=== PATIENT | male | born 1960 | race Hispanic/Latino ===

== ENCOUNTER 2017-07-20 01:26 | Inpatient (IN) | payer OTHER ==
--- NOTE | 2017-07-20 01:31 | C.PDOC ---
History Of Present Illness 57 y/o male presents to the ED for detox of the Heroin and cocaine. The patient states that he last used a few of hours ago. The patient denies headaches, dizziness, nausea, vomiting, and diarrhea. Time Seen by Provider: 07/20/17 01:31 History Per: Patient History/Exam Limitations: no limitations Onset/Duration Of Symptoms: Hrs Current Symptoms Are (Timing): Still Present Suicide/Self Injury Attempted (Context): None Modifying Factor(s): Cocaine, Other (heroin) Severity: None Associated Symptoms: Depression Involuntary Hold By: None Recent travel outside of the [place]: No Additional History Per: Patient Past Medical History Reviewed: Historical Data, Nursing Documentation, Vital Signs Vital Signs: Last Vital Signs Temp 98 F 07/20/17 01:38 Pulse 80 07/20/17 01:38 Resp 16 07/20/17 01:38 BP 160/75 H 07/20/17 01:38 Pulse Ox 98 07/20/17 01:38 Surgical History: No Surg Hx Family History: States: No Known Family Hx Review Of Systems Except As Marked, All Systems Reviewed And Found Negative. Constitutional: Negative for: Fever, Chills Eyes: Negative for: Vision Change ENT: Negative for: Throat Pain Cardiovascular: Negative for: Chest Pain Respiratory: Negative for: Shortness of Breath Gastrointestinal: Negative for: Nausea, Vomiting, Abdominal Pain, Diarrhea Musculoskeletal: Negative for: Back Pain Neurological: Positive for: Other (substance abuse (Cocaine and Heroin)). Negative for: Change in Speech, Dizziness Psych: Negative for: Anxiety Physical Exam - Physical Exam Appears: Non-toxic, No Acute Distress Skin: Warm, Dry Head: Normacephalic Eye(s): bilateral: Normal Inspection Oral Mucosa: Moist Neck: Supple Chest: Symmetrical Cardiovascular: Rhythm Regular Respiratory: No Decreased Breath Sounds, No Rales, No Rhonchi, No Wheezing Gastrointestinal/Abdominal: Soft, No Tenderness, No Guarding Back: Normal Inspection Extremity: Capillary Refill (2<sec.) Extremity: Bilateral: Normal ROM Pulses: Left Dorsalis Pedis: Normal, Right Dorsalis Pedis: Normal Neurological/Psych: Oriented x3, Normal Speech, Normal Cognition, Other Gait: Steady ED Course And Treatment - Laboratory Results Result Diagrams: 07/20/17 02:22 07/20/17 02:22 O2 Sat by Pulse Oximetry: 98 Pulse Ox Interpretation: Normal Progress Note: Blood work, and UA was performed. Disposition Discussed With : Gareth Agustin Comment: accepted the pt on his service and took over the care at 3:44 AM Doctor Will See Patient In The: Hospital Counseled Patient/Family Regarding: Studies Performed, Diagnosis - Disposition Disposition: HOSPITALIZED Disposition Time: :31 Condition: FAIR - POA Present On Arrival: Poor Glycemic Control - Clinical Impression Clinical Impression: Drug abuse, Drug dependence - PA / CEMENT MIXER / Resident Statement MD/DO has examined the patient and agrees with the treatment plan. - Scribe Statement The provider has reviewed the documentation as recorded by the Scribe Cathryn Anderson All medical record entries made by the Scribe were at my direction and personally dictated by me. I have reviewed the chart and agree that the record accurately reflects my personal performance of the history, physical exam, medical decision making, and the department course for this patient. I have also personally directed, reviewed, and agree with the discharge instructions and disposition. Decision To Admit - Pt Status Changed To: Hospital Disposition Of: Inpatient - Admit Certification Admit to Inpatient:: After my assessment, the patient will require hospitalization for at least two midnights. This is because of the severity of symptoms shown, intensity of services needed, and/or the medical risk in this patient being treated as an outpatient. - InPatient: Physician Admission Certification: I certify that this patient requires 2 or more midnights of care for the following reason:: After my assessment, the patient will require hospitalization for at least two midnights. This is because of the severity of symptoms shown, intensity of services needed, and/or the medical risk in this patient being treated as an outpatient. - . Bed Request Type: Detox Admitting Physician: Gareth Agustin Patient Diagnosis: Drug abuse, Drug dependence
[2017-07-20 01:34] VITALS: BMI 25.0
[2017-07-20 02:29] LABS: BASO # 0.1 K/uL (0.0-0.2); BASO % 0.8 % (0.0-2.0); EOS # 0.2 K/uL (0.0-0.7); EOS % 2.5 % (0.0-4.0); HEMATOCRIT 40.6 % (35.0-51.0); LYMPH # 2.3 K/uL (1.0-4.3); LYMPH % 23.8 % (20.0-40.0); MEAN CELL VOLUME 79.6 fL (80.0-94.0); MEAN CORPUSCULAR HGB CONC 32.6 g/dL (33.0-37.0); MONO # 0.6 K/uL (0.0-0.8); MONO % 6.4 % (0.0-10.0); NRBC % 0.1 % (0.0-2.0); RED CELL DISTRIBUTION WIDTH 14.1 % (11.5-14.5); WHITE BLOOD COUNT 9.8 K/uL (4.8-10.8)
[2017-07-20 02:37] LABS: RBC URINE 2 /hpf (0-3); URINE BILIRUBIN NEGATIVE (NEGATIVE); URINE BLOOD NEGATIVE (NEGATIVE); URINE COLOR Yellow (YELLOW); URINE GLUCOSE (UA) NORMAL (Normal); URINE KETONE TRACE mg/dL (NEGATIVE); URINE LEUKOCYTE ESTERASE 1+ Leu/uL (Negative); URINE PROTEIN NEGATIVE (NEGATIVE); WBC URINE 9 /hpf (0-5)
[2017-07-20 02:39] LABS: ALB/GLOB RATIO 1.3 (1.0-2.1); ALCOHOL SERUM < 10 mg/dl (0-10); ALKALINE PHOSPHATASE 93 U/L (38-126); ALT/SGPT 50 U/L (21-72); AST/SGOT 32 U/L (17-59); BILIRUBIN,TOTAL 0.6 mg/dL (0.2-1.3); BLOOD UREA NITROGEN 14 mg/dL (9-20); CALCIUM 9.2 mg/dl (8.6-10.4); CARBON DIOXIDE 29 mmol/L (22-30); CHLORIDE 97 mmol/L (98-107); GFR AFRICAN-AMERICAN > 60; GLUCOSE,RANDOM 114 mg/dL (75-110); POTASSIUM 4.2 mmol/L (3.6-5.2); SODIUM 137 mmol/L (132-148); TOTAL PROTEIN 8.2 g/dL (6.3-8.3)
--- NOTE | 2017-07-20 06:36 | PCM.BM ---
<Vaishali Rhodes - Last Filed: 07/20/17 06:35> Treatment Plan Problems - Problems identified on initial assessmt Opiates Abuse Date Initiated: 07/20/17 Time Initiated: 05:15 Assessment reference: NA Status: Active Treatment assets and liabiliti Patient Assests: adapts well, ADL independent, negotiates basic needs Patient Liabilities: substance abuse (Opiates, cocaine) - Milieu Protocol Maintain good personal hygiene: daily Encourage regular showers, daily Remind patient to perform daily oral care Conduct patient checks and document Observation sheet: Q15 minutes Maintain personal safety: every shift Educate patient to report safety concerns to staff, every shift Monitor environment for contraband/sharps Medication safety: Monitor for expected outcome, potential side effects: every shift, Assess barriers to learning: every shift, Assess readiness for medication education: every shift <Gareth Agustin - Last Filed: 07/23/17 13:02> - Diagnosis (1) Opioid use disorder, severe, dependence Status: Acute Interventions: 07/23/17 13:02 * Assess 7x/week regarding severity of withdrawal * Educate regarding risks, benefits, side effects and alternatives of medications * Use Motivational Interviewing for abstinence * Use CBT for relapse prevention * Medication management for withdrawal symptoms * Encourage medication assisted treatment *
[2017-07-20] MEDS ORDERED: Aluminum Hydroxide/Magnesium Hydroxide Susp (30 mL) PO PRN (10:07)
--- NOTE | 2017-07-20 10:29 | PCM.PSYCH ---
Initial Psychiatric Evaluation - Initial Psychiatric Evaluation Type of Admission: Voluntary Legal Status: Capacity Chief Complaint (in patient's own words): I need help.' History of Present Illness and Precipitating Events: Patient is a 57 year old CM, who is currently homeless, presented to the ED to get help in Detox. Patient stated in the ED that he has abused Cocaine and initially used Cocaine intranasally in the 80's. Patient started using Heroin when he was 44 years of age and started intranasal progressing on to intravenous use 2 years later. At the age of 54, the patient began combining the two drugs and injecting himself with 3 or 4 bags of Heroin and 1/10th a gram of Cocaine. Patient would buy anywhere from 50 dollars to 200 dollars of Heroin and Cocaine daily. 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 Patient denies any legal issues and states that at the present time he is homeless and occasionally stays at his sister's home on [address] in [place]. Patient denies any past history of inpatient psychiatric hospitalizations or any history of follow-up with any psychiatrist. However, he reports h/o multiple detox admissions in the past, last one was at [facility], few months ago. Patient reports of withdrawal symptoms including sweating, headaches, anxiety, and cramps. However, denies any feelings of hopelessness and helplessness. He denies any suicidal ideation or homicidal ideation or any auditory or visual hallucinations. PMH HTN Current Medications: Active Medications Generic Name Dose Route Start Last Admin Trade Name Freq PRN Reason Stop Dose Admin Al Hydrox/Mg Hydrox/Simethicone 30 ml 07/20/17 10:07 Maalox 30 Ml PO TID PRN Indigestion / Heartburn Clonidine HCl 0.1 mg 07/20/17 05:49 Catapres PO Q4H PRN Withdrawal symptoms Hydroxyzine HCl 50 mg 07/20/17 10:07 Atarax PO Q6H PRN Anxiety Ibuprofen 600 mg 07/20/17 10:07 Motrin Tab PO Q6H PRN Pain, moderate (4-7) Loperamide HCl 2 mg 07/20/17 10:07 Imodium PO Q8 PRN Diarrhea Ondansetron HCl 4 mg 07/20/17 10:07 Zofran Tab PO Q8 PRN Nausea/Vomiting Trazodone HCl 100 mg 07/20/17 10:07 Desyrel PO HS PRN Insomnia Past Psychiatric History - Past Psychiatric History Previous Treatment History: Inpatient Pertinent Medical Hx (Current Medical&Sleep Prob, Allergies): Allergies Allergy/AdvReac Type Severity Reaction Status Date / Time FISH Allergy Verified 07/20/17 01:33 No Known Home Med 07/20/17 Review of Systems - Review of Systems All systems: reviewed and no additional remarkable complaints except - Psychiatric Psychiatric: Anxiety, Irritability Mental Status Examination - Personal Presentation Personal Presentation: Looks stated age - Affect Affect: Constricted - Motor Activity Motor Activity: Calm - Reliability in Providing Information Reliability in Providing Information: Good - Speech Speech: Organized - Mood Mood: Anxious - Formal Thought Process Formal Thought Process: No Impairment - Obsessions/Compulsions Obsessions: No Compulsions: No - Cognitive Functions Orientation: Person, Place, Situation, Time Sensorium: Alert Attention/Concentration: Attentive Abstract Thinking: [place] Estimate of Intelligence: Below average Judgement: Imparied, as evidence by: Poor judgement, Intact, as evidence by: Insight regarding need for hospitalization - Risk Risk: Withdrawal, Diminished functioning - Limitations Limitations: Living alone DSM 5 DX - DSM 5 DSM 5 Diagnosis: Opioid use disorder severe Opioid withdrawal Cocaine use disorder severe - Recommended/Plan of Treatment Treatment Recommendations and Plan of Treatment: Opioid use disorder severe CBT Psychoeducation Supportive therapy, individual therapy Use NE for abstinence Opioid withdrawal CBT Psychoeducation Supportive therapy, individual therapy Clonidine when necessary Start subutax when scoring Cocaine use disorder severe CBT Psychoeducation Supportive therapy, individual therapy Use NE for abstinence HTN Monitor s/s Continue prescribed meds - Smoking Cessation Smoking Cessation Initiated: No
[2017-07-20] MEDS ORDERED: Buprenorphine Hydrochloride 2 mg SL ONE ×2 (19:23→20:45)
[2017-07-20] MEDS ORDERED: Buprenorphine Hydrochloride 8 mg SL SCH (20:40)
--- NOTE | 2017-07-20 23:05 | CP.PCM.CON ---
<Apple Perez AceMicaela - Last Filed: 07/21/17 02:07> History of Present Illness - History of Present Illness History of Present Illness: Medicine Consult: 57 year old male with past medical history of polysubstance abuse is being consulted for high blood pressure. Patient is currently in the hospital for detox of cocaine and heroin use. Patient states he is doing well. He denies chest pain, palpitations, shortness of breath, difficult breathing, dizziness, light headedness, nausea or vomiting. PMD: None Past Medical History: None Past surgical history: none Medications: None Allergies: NKDA Family History: None Social: uses IV heroin and IV cocaine; denies alcohol; smokes a pack of cigarettes per day for the past 35 years. Lives with sister. Works for a [employer]. Review of Systems - Constitutional Constitutional: absent: Chills, Fever - Cardiovascular Cardiovascular: absent: Chest Pain, Dyspnea, Palpitations - Gastrointestinal Gastrointestinal: absent: Constipation, Diarrhea, Nausea, Vomiting - Genitourinary Genitourinary: absent: Dysuria - Neurological Neurological: absent: Dizziness, Numbness, Headaches Past Patient History - Infectious Disease Hx of Infectious Diseases: None - Past Social History Smoking Status: Heavy Smoker > 10 Cigarettes Daily - CARDIAC Hx Cardiac Disorders: No Hx Hypertension: No - PULMONARY Hx Tuberculosis: No - NEUROLOGICAL HX Cerebrovascular Accident: No Hx Seizures: No - HEMATOLOGICAL/ONCOLOGICAL Hx Cancer: No Hx Human Immunodeficiency Virus (HIV): No - MUSCULOSKELETAL/RHEUMATOLOGICAL Hx Falls: No - GENITOURINARY/GYNECOLOGICAL Hx Sexually Transmitted Disorders: No - PSYCHIATRIC Hx Substance Use: Yes - SURGICAL HISTORY Hx Surgeries: Yes Other/Comment: inguinal hernia repair - ANESTHESIA Hx Anesthesia: Yes Hx Anesthesia Reactions: No Hx Malignant Hyperthermia: No Meds Allergies/Adverse Reactions: Allergies Allergy/AdvReac Type Severity Reaction Status Date / Time FISH Allergy Verified 07/20/17 01:33 - Medications Medications: Current Medications Al Hydrox/Mg Hydrox/Simethicone (Maalox 30 Ml) 30 ml PO TID PRN PRN Reason: Indigestion / Heartburn Clonidine HCl (Catapres) 0.1 mg PO Q4H PRN PRN Reason: Withdrawal symptoms Last Admin: 07/20/17 22:00 Dose: 0.1 mg Hydroxyzine HCl (Atarax) 50 mg PO Q6H PRN PRN Reason: Anxiety Ibuprofen (Motrin Tab) 600 mg PO Q6H PRN PRN Reason: Pain, moderate (4-7) Loperamide HCl (Imodium) 2 mg PO Q8 PRN PRN Reason: Diarrhea Ondansetron HCl (Zofran Tab) 4 mg PO Q8 PRN PRN Reason: Nausea/Vomiting Trazodone HCl (Desyrel) 100 mg PO HS PRN PRN Reason: Insomnia Physical Exam - Constitutional Appears: Well, No Acute Distress (patient laying comfortably in bed ) Results - Vital Signs Recent Vital Signs: Last Vital Signs Temp 97.4 F L 07/20/17 18:03 Pulse 60 07/20/17 18:03 Resp 18 07/20/17 18:03 BP 206/96 H 07/20/17 18:03 Pulse Ox 97 07/20/17 18:03 - Labs Result Diagrams: 07/20/17 02:22 07/20/17 02:22 Labs: Laboratory Results - last 24 hr 07/20/17 07/20/17 07/20/17 02:22 02:22 02:22 WBC 9.8 RBC 5.10 Hgb 13.2 Hct 40.6 MCV 79.6 L MCH 26.0 L MCHC 32.6 L RDW 14.1 Plt Count 359 MPV 8.0 Neut % (Auto) 66.5 Lymph % (Auto) 23.8 [place] % (Auto) 6.4 Eos % (Auto) 2.5 Baso % (Auto) 0.8 Neut # 6.5 Lymph # 2.3 [place] # 0.6 Eos # 0.2 Baso # 0.1 Sodium 137 Potassium 4.2 Chloride 97 L Carbon Dioxide 29 Anion Gap 15 BUN 14 Creatinine 0.9 Est GFR ( Amer) > 60 Est GFR (Non-Af Amer) > 60 Random Glucose 114 H Calcium 9.2 Total Bilirubin 0.6 AST 32 ALT 50 Alkaline Phosphatase 93 Total Protein 8.2 Albumin 4.6 Globulin 3.6 Albumin/Globulin Ratio 1.3 Urine Color Yellow Urine Clarity Clear Urine pH 6.0 Ur Specific [place] 1.024 Urine Protein Negative Urine Glucose (UA) Normal Urine Ketones Trace Urine Blood Negative Urine Nitrate Negative Urine Bilirubin Negative Urine Urobilinogen 2.0 Ur Leukocyte Esterase 1+ H Urine WBC (Auto) 9 H Urine RBC (Auto) 2 Ur Squamous Epith Cells < 1 Urine Opiates Screen Urine Methadone Screen Ur Barbiturates Screen Ur Phencyclidine Scrn Ur Amphetamines Screen U Benzodiazepines Scrn U Oth Cocaine Metabols U Cannabinoids Screen Alcohol, Quantitative < 10 07/20/17 02:22 WBC RBC Hgb Hct MCV MCH MCHC RDW Plt Count MPV Neut % (Auto) Lymph % (Auto) [place] % (Auto) Eos % (Auto) Baso % (Auto) Neut # Lymph # [place] # Eos # Baso # Sodium Potassium Chloride Carbon Dioxide Anion Gap BUN Creatinine Est GFR ( Amer) Est GFR (Non-Af Amer) Random Glucose Calcium Total Bilirubin AST ALT Alkaline Phosphatase Total Protein Albumin Globulin Albumin/Globulin Ratio Urine Color Urine Clarity Urine pH Ur Specific [place] Urine Protein Urine Glucose (UA) Urine Ketones Urine Blood Urine Nitrate Urine Bilirubin Urine Urobilinogen Ur Leukocyte Esterase Urine WBC (Auto) Urine RBC (Auto) Ur Squamous Epith Cells Urine Opiates Screen Positive H Urine Methadone Screen Negative Ur Barbiturates Screen Negative Ur Phencyclidine Scrn Negative Ur Amphetamines Screen Negative U Benzodiazepines Scrn Negative U Oth Cocaine Metabols Positive H U Cannabinoids Screen Negative Alcohol, Quantitative Assessment & Plan - Assessment and Plan (Free Text) Assessment: 1.) Hypertension - Hydralazine 10mg q6h - Monitor 2.) Polysubstance Abuse - Being managed by psychiatry Case discussed with Dr. Jess Perez PGY-1 <Carlos Mercado - Last Filed: 07/21/17 06:32> Meds - Medications Medications: Current Medications Al Hydrox/Mg Hydrox/Simethicone (Maalox 30 Ml) 30 ml PO TID PRN PRN Reason: Indigestion / Heartburn Clonidine HCl (Catapres) 0.1 mg PO Q4H PRN PRN Reason: Withdrawal symptoms Last Admin: 07/20/17 22:00 Dose: 0.1 mg Hydralazine HCl (Apresoline) 10 mg PO Q6H GUILLE Last Admin: 07/21/17 05:18 Dose: 10 mg Hydroxyzine HCl (Atarax) 50 mg PO Q6H PRN PRN Reason: Anxiety Ibuprofen (Motrin Tab) 600 mg PO Q6H PRN PRN Reason: Pain, moderate (4-7) Loperamide HCl (Imodium) 2 mg PO Q8 PRN PRN Reason: Diarrhea Ondansetron HCl (Zofran Tab) 4 mg PO Q8 PRN PRN Reason: Nausea/Vomiting Trazodone HCl (Desyrel) 100 mg PO HS PRN PRN Reason: Insomnia Results - Vital Signs Recent Vital Signs: Last Vital Signs Temp 97.4 F L 07/20/17 18:03 Pulse 76 07/20/17 23:32 Resp 18 07/20/17 18:03 BP 200/100 H 07/20/17 23:32 Pulse Ox 97 07/20/17 18:03 - Labs Result Diagrams: 07/20/17 02:22 07/20/17 02:22 Assessment & Plan - Date & Time Date: 07/21/17 (I have seen and examined the patient. I agree with the findings and plan of care as documented by Dr. Perez. Patient with polysubtance abuse. To be managed by psychiatry. Consulted for hypertension. Continue clonidine and add hydralazine. Monitor for and adjust meds as necessary. Monitor for acute changes.) Time: 06:31 Attending/Attestation - Attestation I have personally seen and examined this patient.: Yes I have fully participated in the care of the patient.: Yes I have reviewed all pertinent clinical information: Yes
--- NOTE | 2017-07-21 07:51 | PCM.RRT ---
<Danna Marquez V - Last Filed: 07/21/17 08:47> NURSE PRACTITIONER HOME ASSESSMENTS Nurses Assessment - Situation NURSE PRACTITIONER HOME ASSESSMENTS Reason for Call: Hypertension NURSE PRACTITIONER HOME ASSESSMENTS Called By: RN - IV IV Inserted during NURSE PRACTITIONER HOME ASSESSMENTS?: No - Recommendations 5) NURSE PRACTITIONER HOME ASSESSMENTS Level of Care Recommendations: Transfer to Telemetry Notifications: Attending Physician I.Reason for NURSE PRACTITIONER HOME ASSESSMENTS - A) Acute Change in Patient: (Select all that apply): Staff member or family is worried about patient - Neurological Status (Select all that apply): Alert, Responsive, Oriented, Verbal, Follows Commands - Respiratory Oxygen Delivery Method: Room Air - Constitutional Appears: Non-toxic, No Acute Distress - Head Head Exam: NORMAL INSPECTION - Eyes Eye Exam: EOMI, PERRL. absent: Nystagmus, Scleral icterus - Respiratory Exam Respiratory Exam: NORMAL BREATHING PATTERN. absent: Rales, Rhonchi - Cardiovascular Exam Cardiovascular Exam: REGULAR RHYTHM, +S1, +S2. absent: JVD - GI/Abdominal Exam GI & Abdominal Exam: Soft, Normal Bowel Sounds. absent: Distended, Firm, Guarding, Rigid, Tenderness, Rebound - Neurological Exam Neurological Exam: Alert, Awake, CN II-XII Intact, Oriented x3 - Extremities Exam Extremities Exam: Normal Capillary Refill Additional comments: hands are mildly edematous, apparent track markings along both arms Attending/Attestation - Attestation I have personally seen and examined this patient.: Yes I have fully participated in the care of the patient.: Yes I have reviewed all pertinent clinical information, including history, physical exam and plan: Yes Notes (Text): NURSE PRACTITIONER HOME ASSESSMENTS called this morning at 711AM for SBP: 210s. Brief Hospitalist Note. Patient seen with NURSE PRACTITIONER HOME ASSESSMENTS team. Patient is asymptomatic, denies headache, denies chest pain, denies blurry vision, denies palpitations, denies abdominal pain, denies nausea, denies vomitting, denies problems with urination. Patient appears quite calm. Patient reports use of heroin about 10-12 bags and cocaine. Reports use was yesterday. Patient is asking for his withdrawal medications, advised patient we will let the psychiatrist determine taper. Patient is specifically asking for methadone. Discussion with the nurse, patient given Hydralazine 25mg PO around 5 :30AM. Patient has PRN Clonidine 0.1mg PO Q 4H for symptoms of withdrawal. Patient last received PRN Clonidine order at 07/20/17 at 22:00. Ordered for Clonidine 0.1mg PO stat at 7:20AM. Patient reports hx of borderline blood pressure problems. Patient is a smoker. Would advised tobacco cessation. Patient admits to heroin and cocaine. patient denies alcohol, reports has not drank in 30 years. Diet adjusted to 2 gram sodium. order for telemetry when bed is available. Discussed with psychiatrist, Dr. Agustin who will evaluate the patient this morning in regards to his withdrawal from heroin and cocaine. Patient re-eval at 7:50AM. Patient sleeping comfortably at bedside. Advised him his psychiatrist is aware and will see him this morning. Discussed with FRANCA Armendariz at 8:10AM. Patient's repeat blood pressure at 209/103. Patient asymptomatic at bedside. Advised to place patient on telemetry. Give patient one time Nitro pasteX. I discontinued hydralzine 10mg PO Q 6H. Start patient on Norvasc 10mg for 10 AM. 8:48AM Spoke with RN Nursing Certified Pharmacy Tech, Gemma Cabrera. Telemetry beds currently not available. Unable to monitor patient to give Nitro. Advised nurse Kala to give the Norvasc 10mg PO now. Hold Nitro until we can get patient on the monitor. Patient is asymptomatic. <Alexis Chan - Last Filed: 07/21/17 11:00> NURSE PRACTITIONER HOME ASSESSMENTS Nurses Assessment - Situation Date: 07/21/17 Time NURSE PRACTITIONER HOME ASSESSMENTS was called: 07:30 NURSE PRACTITIONER HOME ASSESSMENTS Responder Arrival Time:: 07:31 NURSE PRACTITIONER HOME ASSESSMENTS Location:: Med/Detox NURSE PRACTITIONER HOME ASSESSMENTS Reason for Call: Hypertension NURSE PRACTITIONER HOME ASSESSMENTS Called By: RN - IV IV Inserted during NURSE PRACTITIONER HOME ASSESSMENTS?: No CPR started during NURSE PRACTITIONER HOME ASSESSMENTS?: No - Arpita Coma Scale Coma Scale Eye Opening: Spontaneous Coma Scale Motor: Obeys Commands Movement Coma Scale Verbal: Oriented Coma Scale Total: 15 - Recommendations 5) NURSE PRACTITIONER HOME ASSESSMENTS Level of Care Recommendations: Transfer to Telemetry Notifications: Attending Physician I.Reason for NURSE PRACTITIONER HOME ASSESSMENTS - A) Acute Change in Patient: (Select all that apply): Staff member or family is worried about patient - Neurological Status (Select all that apply): Alert, Responsive, Oriented, Verbal, Follows Commands - Respiratory Oxygen Delivery Method: Room Air - Constitutional Appears: Well, Non-toxic, No Acute Distress - Head Head Exam: ATRAUMATIC, NORMAL INSPECTION - Eyes Eye Exam: EOMI, PERRL - Respiratory Exam Respiratory Exam: NORMAL BREATHING PATTERN - Cardiovascular Exam Cardiovascular Exam: REGULAR RHYTHM, +S1, +S2. absent: JVD - GI/Abdominal Exam GI & Abdominal Exam: Soft, Normal Bowel Sounds - Neurological Exam Neurological Exam: Alert, Awake, CN II-XII Intact, Oriented x3 - Extremities Exam Extremities Exam: Normal Capillary Refill Plan - Assessment of Findings&Treatment Plan The patient was not given his Clonidine overnight PRN because the patient was sleeping patient is actively withdrawing from heroin/cocaine which he does together It is known that giving clonidine and then missing doses can cause extreme elevations in BP Patient also has hx of HTN; we will follow patient for further recs Will start amlodipine 10mg PO daily Clonidine Q6H Attending/Attestation - Attestation I have personally seen and examined this patient.: Yes I have fully participated in the care of the patient.: Yes I have reviewed all pertinent clinical information, including history, physical exam and plan: Yes
[2017-07-21] MEDS ORDERED: Nitroglycerin 2% Ointment Foilpak UD TOP ONE (08:30)
[2017-07-21] MEDS ORDERED: Buprenorphine Hydrochloride 2 mg SL ONE (08:30)
--- NOTE | 2017-07-21 12:32 | PCM.PYCHPN ---
Psychiatric Progress Note - Psychiatric Progress Note Patient seen today, length of contact: 16 min Problems Identified/Issues Discussed: The pt is seen, chart reviewed, case discussed with staff. Support given, CBT and [place] used briefly No new withdrawal symptoms reported, improving slowly and needs more time No SEs from medications, risks discussed. After care discussed He is now being transferred to b/c of ongoing very high BP despite meds He will continue his detox there for now Medication Change: Yes (detox changes daily) Medical Record Reviewed: Yes Mental Status Examination - Cognitive Function Orientation: Person, Place, Situation, Time Memory: Intact Attention: WNL Concentration: Poor Association: WNL Fund of Knowledge: WNL - Mood Mood: Anxious - Affect Affect: Constricted - Speech Speech: Appropriate - Formal Thought Process Formal Thought Process: No Impairment - Suicidal Ideation Suicidal Ideation: No - Homicidal Ideation Homicidal Ideation: No Goal/Treatment Plan - Goal/Treatment Plan Need for Continued Stay: Discharge may exacerbated symptoms, Severe functional impairment, Other (high BP) Progress Toward Problem(s) and Goals/Treatment Plan: Subutex detox As needed medications Gabapentin for augmentation Attend groups and activities Supportive therapy and psychoeducation [place] for abstinence CBT for relapse prevention Encourage MAT Refer to rehab or IOP Attend self-help groups as well 34 min Estimated Date of D/C: 07/23/17
--- NOTE | 2017-07-21 17:15 | CP.PCM.PN ---
Subjective - Date & Time of Evaluation Date of Evaluation: 07/21/17 Time of Evaluation: 17:00 - Subjective Subjective: Medical Attending Note Patient seen and examined following [employer] this morning. Patient on telemetry unit. Patient is tachycardic about 106 on the monitor. patient seen at bedside eating burger and fries. Advised patient for low salt given underlying hypertension. Patient denies acute complaints. Patient is aware they cannot give his withdrawal medications on [address] but on the detox floor. Objective - Vital Signs/Intake and Output Vital Signs (last 24 hours): Temp Pulse Resp BP Pulse Ox 98.0 F 69 18 174/92 H 98 07/21/17 15:55 07/21/17 15:55 07/21/17 15:55 07/21/17 15:55 07/21/17 15:55 - Medications Medications: Current Medications Al Hydrox/Mg Hydrox/Simethicone (Maalox 30 Ml) 30 ml PO TID PRN PRN Reason: Indigestion / Heartburn Amlodipine Besylate (Norvasc) 10 mg PO DAILY [facility] Last Admin: 07/21/17 09:04 Dose: 10 mg Buprenorphine HCl (Subutex) 6 mg SL .TAPER [facility] PRN Reason: Taper Stop: 07/25/17 08:59 Clonidine HCl (Catapres) 0.1 mg PO Q4H PRN PRN Reason: Withdrawal symptoms Last Admin: 07/21/17 12:27 Dose: 0.1 mg Hydroxyzine HCl (Atarax) 50 mg PO Q6H PRN PRN Reason: Anxiety Ibuprofen (Motrin Tab) 600 mg PO Q6H PRN PRN Reason: Pain, moderate (4-7) Lisinopril (Zestril) 5 mg PO DAILY [facility] Last Admin: 07/21/17 13:57 Dose: 5 mg Loperamide HCl (Imodium) 2 mg PO Q8 PRN PRN Reason: Diarrhea Ondansetron HCl (Zofran Tab) 4 mg PO Q8 PRN PRN Reason: Nausea/Vomiting Trazodone HCl (Desyrel) 100 mg PO HS PRN PRN Reason: Insomnia - Labs Labs: 07/20/17 02:22 07/20/17 02:22 - Constitutional Appears: Non-toxic, No Acute Distress - Head Exam Head Exam: NORMAL INSPECTION - Eye Exam Eye Exam: EOMI - ENT Exam ENT Exam: Mucous Membranes Moist - Respiratory Exam Respiratory Exam: Clear to Ausculation Bilateral, NORMAL BREATHING PATTERN. absent: Rales, Rhonchi, Wheezes - Cardiovascular Exam Cardiovascular Exam: Tachycardia, +S1, +S2 - GI/Abdominal Exam GI & Abdominal Exam: Soft, Normal Bowel Sounds. absent: Distended, Firm, Guarding, Rigid, Tenderness, Rebound - Extremities Exam Extremities Exam: absent: Pedal Edema, Tenderness Additional comments: hands with erythematous track chavez - Neurological Exam Neurological Exam: Alert, Awake, Oriented x3 - Skin Skin Exam: Intact, Warm Additional comments: track markes noticeably over the hands Assessment and Plan (1) Asymptomatic hypertensive urgency Assessment & Plan: Transfer to telemetry floor following [employer] this morning Blood pressure better controlled Clonidine 0.1mg PO Q 4PRN-->reclarified order for the floors Give SBP>160 Lisinopril 5mg PO daily Norvasc 10mg PO daily 2 gram low sodium diet will observe patient overnight on telemetry if blood pressure better control will transfer out to detox in the AM Status: Acute (2) Cocaine abuse Assessment & Plan: no beta paul no complaints of chest pain/palpitations Status: Acute (3) Heroin withdrawal Assessment & Plan: Management per psych Patient got dose of Subtex today; 6th floor cannot give subtex on their floor Discussed with charge nurseNany Status: Acute (4) Tobacco use Assessment & Plan: nicotine patch Status: Chronic (5) Prophylactic measure Assessment & Plan: patient is ambulatory No chemical anticoagulation at this time Status: Acute
[2017-07-22] MEDS: Buprenorphine Hydrochloride 2 mg SL SCH (10:10)
--- NOTE | 2017-07-22 12:01 | CP.PCM.PN ---
Subjective - Date & Time of Evaluation Date of Evaluation: 07/22/17 Time of Evaluation: 11:55 - Subjective Subjective: Medical Attending Note: Patient seen and examined. Blood pressure improved. Stable to transfer back to detox. Patient denies headache, denies chest pain, denies cough, denies nausea, denies dizziness, denies abdominal pain, denies nausea, denies vomitting, denies dysuria, denies frequency, denies constipation, but reports diarrhea. Explained to patient in great detail in terms of lifestyle modifications to improve blood pressure and overall health. Objective - Vital Signs/Intake and Output Vital Signs (last 24 hours): Temp Pulse Resp BP Pulse Ox 98.3 F 91 H 18 156/94 H 97 07/22/17 10:00 07/22/17 10:00 07/22/17 10:00 07/22/17 10:00 07/22/17 10:00 - Medications Medications: Current Medications Al Hydrox/Mg Hydrox/Simethicone (Maalox 30 Ml) 30 ml PO TID PRN PRN Reason: Indigestion / Heartburn Amlodipine Besylate (Norvasc) 10 mg PO DAILY [facility] Last Admin: 07/22/17 10:09 Dose: 10 mg Buprenorphine HCl (Subutex) 6 mg SL DAILY [facility] PRN Reason: Taper Stop: 07/25/17 08:59 Last Admin: 07/22/17 10:10 Dose: 6 mg Clonidine HCl (Catapres) 0.1 mg PO Q4H PRN PRN Reason: Other Hydroxyzine HCl (Atarax) 50 mg PO Q6H PRN PRN Reason: Anxiety Last Admin: 07/21/17 18:08 Dose: 50 mg Ibuprofen (Motrin Tab) 600 mg PO Q6H PRN PRN Reason: Pain, moderate (4-7) Lisinopril (Zestril) 5 mg PO DAILY [facility] Last Admin: 07/22/17 10:45 Dose: 5 mg Loperamide HCl (Imodium) 2 mg PO Q8 PRN PRN Reason: Diarrhea Last Admin: 07/21/17 18:32 Dose: 2 mg Nicotine (Nicoderm Cq) 1 patch TD DAILY [facility] Last Admin: 07/22/17 10:09 Dose: Not Given Ondansetron HCl (Zofran Tab) 4 mg PO Q8 PRN PRN Reason: Nausea/Vomiting Trazodone HCl (Desyrel) 100 mg PO HS PRN PRN Reason: Insomnia - Labs Labs: 07/20/17 02:22 07/20/17 02:22 - Constitutional Appears: Non-toxic, No Acute Distress - Head Exam Head Exam: NORMAL INSPECTION - Eye Exam Eye Exam: EOMI. absent: Nystagmus, Scleral icterus Pupil Exam: NORMAL ACCOMODATION - ENT Exam ENT Exam: Mucous Membranes Moist - Respiratory Exam Respiratory Exam: Clear to Ausculation Bilateral, NORMAL BREATHING PATTERN. absent: Rales, Rhonchi, Wheezes - Cardiovascular Exam Cardiovascular Exam: REGULAR RHYTHM, +S1, +S2 - GI/Abdominal Exam GI & Abdominal Exam: Soft, Normal Bowel Sounds. absent: Distended, Guarding, Rigid, Tenderness, Diminished Bowel Sounds, Rebound - Extremities Exam Extremities Exam: absent: Pedal Edema, Tenderness Additional comments: track chavez apparent over arms healed chavez from bilateral lower extremities - Neurological Exam Neurological Exam: Alert, Awake, Oriented x3 Neuro motor strength exam: Left Upper Extremity: 5, Right Upper Extremity: 5, Left Lower Extremity: 5, Right Lower Extremity: 5 - Skin Skin Exam: Dry, Intact, Normal Color, Warm Assessment and Plan (1) Asymptomatic hypertensive urgency Status: Resolved (2) Hypertension, uncontrolled Status: Chronic (3) Cocaine abuse Status: Acute (4) Heroin withdrawal Status: Acute (5) Tobacco use Status: Chronic (6) Prophylactic measure Status: Acute - Assessment and Plan (Free Text) Assessment: (1) Uncontrolled hypertension Assessment & Plan: 07/25. Blood pressure stable. Telemetry discontinued. Stable to transfer back to the floor Educated at length in regards to dietary modifications, smoking cessation C/w Lisinopril 5mg PO daily and Norvasc 10mg PO daily Clonidine 0.1mg PO Q 4PRN-->symptoms for withdrawal 2 gram low sodium diet Will need outpatient follow-up when stable from psych Status: Chronic (2) Cocaine abuse Assessment & Plan: no beta paul no complaints of chest pain/palpitations (3) Heroin withdrawal Assessment & Plan: Management per psych Status: Acute (4) Tobacco use Assessment & Plan: nicotine patch Discussed smoking cessation at bedside Status: Chronic (5) Prophylactic measure Assessment & Plan: patient is ambulatory No chemical anticoagulation at this time 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 Patient may follow-up at the [facility]; call ([phone]) to make an appointment or leave a message to be called back for appointment. Medicine team to sign. Please reconsult if necessary. Thank you.
--- NOTE | 2017-07-22 12:59 | PCM.PYCHPN ---
Psychiatric Progress Note - Psychiatric Progress Note Patient seen today, length of contact: 16 min Patient Chief Complaint: I m feeling better.' Problems Identified/Issues Discussed: Patient seen and evaluated, chart reviewed and discussed with the nurse. He was transferred to medicine because of high blood pressure. Today patient was transferred back to detox. He reports improvement in his anxiety and improvement in the withdrawal symptoms. He reports improvement in the sleep and appetite. He reports improvement in his mood and denies any SI/HI/AVH. He is taking medication and denies any side effects. He needs more time for stabilization. Supportive therapy and psychoeducation were given. Medication Change: Yes (detox changes daily) Medical Record Reviewed: Yes Mental Status Examination - Cognitive Function Orientation: Person, Place, Situation, Time Memory: Intact Attention: WNL Concentration: Poor Association: WNL Fund of Knowledge: WNL - Mood Mood: Anxious - Affect Affect: Constricted - Speech Speech: Appropriate - Formal Thought Process Formal Thought Process: No Impairment - Suicidal Ideation Suicidal Ideation: No - Homicidal Ideation Homicidal Ideation: No Goal/Treatment Plan - Goal/Treatment Plan Need for Continued Stay: Discharge may exacerbated symptoms, Severe functional impairment Progress Toward Problem(s) and Goals/Treatment Plan: Opioid use disorder severe CBT Psychoeducation Supportive therapy, individual therapy Use [place] for abstinence Opioid withdrawal CBT Psychoeducation Supportive therapy, individual therapy Clonidine when necessary Start subutax when scoring Cocaine use disorder severe CBT Psychoeducation Supportive therapy, individual therapy Use [place] for abstinence HTN Monitor s/s Continue prescribed meds Estimated Date of D/C: 07/23/17 - Smoking Cessation Smoking Cessation Initiated: No
[2017-07-23] MEDS: Buprenorphine Hydrochloride 2 mg SL SCH ×2 (10:29→10:34)
--- NOTE | 2017-07-23 13:01 | PCM.PYCHPN ---
Psychiatric Progress Note - Psychiatric Progress Note Patient seen today, length of contact: 16 min Patient Chief Complaint: "getting better" Problems Identified/Issues Discussed: The pt is seen, chart reviewed, case discussed with staff. He is back in detox Support given, CBT and [place] used briefly No new withdrawal symptoms reported, improving slowly and needs more time No SEs from medications, risks discussed. 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 dose Medication Change: Yes (detox changes daily) Medical Record Reviewed: Yes Mental Status Examination - Cognitive Function Orientation: Person, Place, Situation, Time Memory: Intact Attention: WNL Concentration: Poor Association: WNL Fund of Knowledge: WNL - Mood Mood: Anxious - Affect Affect: Constricted - Speech Speech: Appropriate - Formal Thought Process Formal Thought Process: No Impairment - Suicidal Ideation Suicidal Ideation: No - Homicidal Ideation Homicidal Ideation: No Goal/Treatment Plan - Goal/Treatment Plan Need for Continued Stay: Discharge may exacerbated symptoms, Severe functional impairment Progress Toward Problem(s) and Goals/Treatment Plan: Subutex detox As needed medications Gabapentin for augmentation Attend groups and activities Supportive therapy and psychoeducation [place] for abstinence CBT for relapse prevention Encourage MAT Refer to rehab or IOP Attend self-help groups as well Estimated Date of D/C: 07/24/17 If changed, why: needs a dose
[2017-07-24 06:39] VITALS: RESP 18; O2SAT 97
[2017-07-24 08:47] VITALS: BP 151/80; PULSE 69; TEMP 98.4
[2017-07-24] MEDS: Buprenorphine Hydrochloride 2 mg SL SCH (09:22)
--- NOTE | 2017-07-24 09:57 | PCM.PYCHDC ---
Mental Status Examination - Mental Status Examination Orientation: Person, Place, Situation, Time Memory: Intact Mood: Neutral Affect: Constricted Speech: Soft Attention: WNL Concentration: WNL Association: WNL Fund of Knowledge: WNL Formal Thought Process: No Impairment Description of patient's judgement and insight: good, fair Psychotic Thoughts and Behaviors: denies any AVH Suicidal Ideation: No Current Homicidal Ideation?: No Discharge Summary - Discharge Note Reason for Hospitalization: Patient is a 57 year old CM, who is currently homeless, presented to the ED to get help in Detox. Patient stated in the ED that he has abused Cocaine and initially used Cocaine intranasally in the 80's. Patient started using Heroin when he was 44 years of age and started intranasal progressing on to intravenous use 2 years later. At the age of 54, the patient began combining the two drugs and injecting himself with 3 or 4 bags of Heroin and 1/10th a gram of Cocaine. Patient would buy anywhere from 50 dollars to 200 dollars of Heroin and Cocaine daily. 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 Patient denies any legal issues and states that at the present time he is homeless and occasionally stays at his sister's home on [address]. Patient denies any past history of inpatient psychiatric hospitalizations or any history of follow-up with any psychiatrist. However, he reports h/o multiple detox admissions in the past, [place] one was [place] [facility]. Patient reports of withdrawal symptoms including sweating, headaches, anxiety, and cramps. However, denies any feelings of hopelessness and helplessness. He denies any suicidal ideation or homicidal ideation or any auditory or visual hallucinations. Consultations:: List each consultation separately and include: 1. Reason for request. 2. Findings. 3. Follow-up Summary of Hospital Course include:: 1. Description of specific treatment plan utilized for patients during their course of treatmen. 2. Summarize the time- course for resolution of acute symptoms and/or regressed behaviors. 3. Describe issues identified and worked on during hospitalization. 4. Describe medication utilized. 5. Describe medical problems identified and treated. 6. Reassessment of suicide risk Summary of Hospital Course: Patient is a 57 year old CM, who is currently homeless, presented to the ED to get help in Detox. Patient stated in the ED that he has abused Cocaine and initially used Cocaine intranasally in the 80's. Patient started using Heroin when he was 44 years of age and started intranasal progressing on to intravenous use 2 years later. At the age of 54, the patient began combining the two drugs and injecting himself with 3 or 4 bags of Heroin and 1/10th a gram of Cocaine. Patient would buy anywhere from 50 dollars to 200 dollars of Heroin and Cocaine daily. 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 Patient denies any legal issues and states that at the present time he is homeless and occasionally stays at his sister's home on [address] in [place]. Patient denies any past history of inpatient psychiatric hospitalizations or any history of follow-up with any psychiatrist. However, he reports h/o multiple detox admissions in the past, last one was at [facility]. Patient reports of withdrawal symptoms including sweating, headaches, anxiety, and cramps. However, denies any feelings of hopelessness and helplessness. He denies any suicidal ideation or homicidal ideation or any auditory or visual hallucinations. PMH HTN - Final Diagnosis (DSM 5) Condition upon Discharge: FAIR DSM 5: Opioid use disorder severe Opioid withdrawal Cocaine use disorder severe Disposition: HOME/ ROUTINE Follow-up Treatment Plan: Opioid use disorder severe CBT Psychoeducation Supportive therapy, individual therapy Use [place] for abstinence Opioid withdrawal CBT Psychoeducation Supportive therapy, individual therapy Clonidine when necessary Start subutax when scoring Cocaine use disorder severe CBT Psychoeducation Supportive therapy, individual therapy Use [place] for abstinence HTN Monitor s/s Continue prescribed meds Prescriptions/Medication Reconciliation: amLODIPine [Norvasc] 10 mg PO DAILY #30 tab Lisinopril [Zestril] 5 mg PO DAILY #30 tab traZODone [Desyrel] 100 mg PO HS PRN #30 tab PRN Reason: Insomnia - Smoking Cessation Smoking Cessation Medication prescribed: No - Antipsychotic Medications Pt discharged on 2 or more routine antipsychotic medications: No
== END 2017-07-24 10:30 | disposition home or self-care (01) | DRG 745 ==
LOC: C.ER 01:26 → C.7D 03:43 → C.6T 07-21 09:43 → C.7D 07-22 09:00
PROVIDERS: ADMIT Psychiatry & Neurology Psychiatry; ATTEND Hospitalist
PROC: HZ2ZZZZ Detoxification Services for Substance Abuse Treatment (ICD-10-PCS; principal; 2017-07-20)
PROC: GZ56ZZZ Individual Psychotherapy, Supportive (ICD-10-PCS; 2017-07-20)
DX: F11.23 Opioid dependence with withdrawal (principal); F14.10 Cocaine abuse, uncomplicated; F41.9 Anxiety disorder, unspecified; I16.0 Hypertensive urgency; Z59.0 Homelessness; I10 Essential (primary) hypertension; Z72.0 Tobacco use

== ENCOUNTER 2018-03-25 20:19 | Inpatient (IN) | payer MEDICAID, OTHER ==
[2018-03-25 20:19] VITALS: BMI 25.0
[2018-03-25 23:10] LABS: EOS # 0.2 K/uL (0.0-0.7); MEAN CORPUSCULAR HEMOGLOBIN 25.7 pg (27.0-31.0); MONO # 0.8 K/uL (0.0-0.8); MONO % 5.4 % (0.0-10.0)
[2018-03-25 23:19] LABS: BASO % 0.3 % (0.0-2.0); EOS % 1.3 % (0.0-4.0); HEMOGLOBIN 11.7 g/dL (12.0-18.0); LYMPH # 1.5 K/uL (1.0-4.3); MEAN CORPUSCULAR HGB CONC 33.2 g/dL (33.0-37.0); MEAN PLATELET VOLUME 8.5 fL (7.2-11.7); NEUT # 12.2 K/uL (1.8-7.0); RBC 4.57 Mil/uL (4.40-5.90); RED CELL DISTRIBUTION WIDTH 15.3 % (11.5-14.5); WHITE BLOOD COUNT 14.8 K/uL (4.8-10.8)
[2018-03-25 23:20] LABS: MEAN CELL VOLUME 77.3 fL (80.0-94.0)
[2018-03-25 23:21] LABS: SQUAMOUS EPITHIAL < 1 /hpf (0-5); URINE BACTERIA OCC (<OCC); URINE BILIRUBIN NEGATIVE (NEGATIVE); URINE BLOOD NEGATIVE (NEGATIVE); URINE CLARITY Clear (Clear); URINE COLOR Yellow (YELLOW); URINE GLUCOSE (UA) NORMAL (Normal); URINE LEUKOCYTE ESTERASE 1+ Leu/uL (Negative); URINE PROTEIN NEGATIVE (NEGATIVE); URINE UROBILINOGEN NORMAL mg/dL (0.2-1.0)
[2018-03-25 23:23] LABS: ALB/GLOB RATIO 1.3 (1.0-2.1); ALBUMIN 4.3 g/dL (3.5-5.0); ALT/SGPT 60 U/L (21-72); AST/SGOT 50 U/L (17-59); BLOOD UREA NITROGEN 20 mg/dL (9-20); CALCIUM 9.4 mg/dl (8.6-10.4); GFR AFRICAN-AMERICAN > 60; GFR NON-AFRICAN AMERICAN > 60
[2018-03-25 23:26] LABS: BARBITURATES, UR NEGATIVE (NEGATIVE); BENZODIAZEPINES, UR NEGATIVE (NEGATIVE); PHENCYCLIDINE, UR NEGATIVE (NEGATIVE)
[2018-03-25 23:27] LABS: OPIATES, UR POSITIVE (NEGATIVE)
--- NOTE | 2018-03-26 00:11 | C.PDOC ---
History Of Present Illness Pt is here requesting detox from Heroin. Time Seen by Provider: 03/25/18 21:44 Chief Complaint (Nursing): Substance Abuse History Per: Patient Onset/Duration Of Symptoms: Days Current Symptoms Are (Timing): Still Present Suicide/Self Injury Attempted (Context): None Modifying Factor(s): Narcotics, Cocaine Severity: Moderate Associated Symptoms: denies: Suicidal Thoughts, Suicidal Plan Additional History Per: Prior Records Past Medical History Reviewed: Historical Data, Nursing Documentation, Vital Signs Vital Signs: Last Vital Signs Temp 99 F 03/25/18 23:09 Pulse 76 03/25/18 23:09 Resp 16 03/25/18 23:09 BP 145/85 03/25/18 23:09 Pulse Ox 98 03/25/18 23:09 - Medical History PMH: Hepatitis (C, treated), HTN - [facility] DETOXIFICATION SERVICES FOR SUBSTANCE ABUSE TREATMENT (07/20/17) INDIVIDUAL PSYCHOTHERAPY, SUPPORTIVE (07/20/17) Family History: States: Unknown Family Hx - Social History Hx Tobacco Use: Yes Hx Alcohol Use: No Hx Substance Use: Yes (IVDU Heroin and Cocaine) - Immunization History Hx Tetanus Toxoid Vaccination: No Hx Influenza Vaccination: No Hx Pneumococcal Vaccination: No Review Of Systems Except As Marked, All Systems Reviewed And Found Negative. Constitutional: Negative for: Fever, Weakness ENT: Negative for: Throat Pain Cardiovascular: Negative for: Chest Pain Respiratory: Negative for: Cough, Shortness of Breath Gastrointestinal: Negative for: Vomiting, Abdominal Pain, Diarrhea Genitourinary: Negative for: Dysuria Musculoskeletal: Negative for: Neck Pain Neurological: Negative for: Weakness, Numbness Physical Exam - Physical Exam Appears: Non-toxic, No Acute Distress Skin: Normal Color, Warm, Dry Head: Atraumatic, Normacephalic Eye(s): bilateral: PERRL, EOMI Neck: Normal ROM, Supple Cardiovascular: Rhythm Regular Respiratory: Normal Breath Sounds, No Accessory Muscle Use Gastrointestinal/Abdominal: Soft, No Tenderness Back: No CVA Tenderness Extremity: Normal ROM, Other (Track chavez) Neurological/Psych: Oriented x3, Normal Motor, Normal Sensation ED Course And Treatment - Laboratory Results Result Diagrams: 03/25/18 23:07 03/25/18 23:07 Interpretation Of Abnormal: Pt has mildly elevated WBC count, however no fever or symptoms of infection. O2 Sat by Pulse Oximetry: 98 Pulse Ox Interpretation: Normal Progress Note: Pt is medically stable for detox admission. Disposition Counseled Patient/Family Regarding: Studies Performed, Diagnosis, Smoking Cessation - Disposition Disposition: HOSPITALIZED Disposition Time: 00:12 Condition: STABLE - Clinical Impression Clinical Impression: Opioid use disorder, Cocaine abuse Decision To Admit - Pt Status Changed To: Hospital Disposition Of: Inpatient - Admit Certification Admit to Inpatient:: After my assessment, the patient will require hospitalization for at least two midnights. This is because of the severity of symptoms shown, intensity of services needed, and/or the medical risk in this patient being treated as an outpatient. - InPatient: Physician Admission Certification: I certify that this patient requires 2 or more midnights of care for the following reason:: Detox. - . Bed Request Type: Detox Admitting Physician: Gareth Agustin Patient Diagnosis: Opioid use disorder, Cocaine abuse
--- NOTE | 2018-03-26 00:22 | PCM.BM ---
<Janusz Zuniga - Last Filed: 03/26/18 00:22> Treatment Plan Problems - Problems identified on initial assessmt potential for opiate withdrawal Date Initiated: 03/26/18 Time Initiated: 00:22 Status: Active Treatment assets and liabiliti Patient Assests: adapts well, ADL independent, negotiates basic needs Patient Liabilities: substance abuse, medical problems - Milieu Protocol Maintain good personal hygiene: daily Encourage regular showers, daily Remind patient to perform daily oral care, daily Assist patient to perform ADL's Conduct patient checks and document Observation sheet: Q15 minutes Maintain personal safety: every shift Educate patient to report safety concerns to staff, every shift Monitor environment for contraband/sharps Medication safety: Monitor for expected outcome, potential side effects: every shift, Assess barriers to learning: every shift, Assess readiness for medication education: every shift <Gareth Agustin - Last Filed: 03/26/18 15:07> - Diagnosis (1) Opioid use disorder, severe, dependence Status: Acute Interventions: 03/26/18 15:07 * Assess 7x/week regarding severity of withdrawal * Educate regarding risks, benefits, side effects and alternatives of medications * Use Motivational Interviewing for abstinence * Use CBT for relapse prevention * Medication management for withdrawal symptoms * Encourage medication assisted treatment *
[2018-03-26] MEDS ORDERED: Benzocaine/Menthol (Cepacol) Lozenge PO PRN (01:33)
[2018-03-26] MEDS ORDERED: Aluminum Hydroxide/Magnesium Hydroxide Susp (30 mL) PO PRN (01:33)
[2018-03-26 09:47] VITALS: RESP 18; O2SAT 98
[2018-03-26 13:42] VITALS: BP 188/82; PULSE 55; TEMP 98.4
[2018-03-26] MEDS ORDERED: Buprenorphine Hydrochloride 2 mg SL ONE ×2 (14:12→15:30)
--- NOTE | 2018-03-26 15:07 | PCM.PSYCH ---
Initial Psychiatric Evaluation - Initial Psychiatric Evaluation Type of Admission: Voluntary Legal Status: Capacity Chief Complaint (in patient's own words): "Very tired" History of Present Illness and Precipitating Events: Pt is seen, chart reviewed, case discussed. 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 Pt states that he uses 2 bundles of heroin by shooting it. He started about 3 years ago and increased. Denies using benzos but admits to using cocaine by shooting it, smokes 1 pack of cigarettes/day. Pt has been on methadone before, 50mg/day. He was also in detox and rehab before. Medical hx: Hep C, uncontrolled HTN? Past psych hx: Denies, but is currently depressed Family psych hx: Denies Current Medications: Active Medications Generic Name Dose Route Start Last Admin Trade Name Freq PRN Reason Stop Dose Admin Al Hydrox/Mg Hydrox/Simethicone 30 ml 03/26/18 01:33 Maalox 30 Ml PO TID PRN Indigestion / Heartburn Benzocaine/Menthol 1 reji 03/26/18 01:33 Cepacol Sore Throat PO QID PRN Sore Throat Buprenorphine HCl 6 mg 03/26/18 15:30 Subutex SL 03/26/18 15:31 ONCE ONE Clonidine HCl 0.1 mg 03/26/18 01:33 Catapres PO Q8 PRN COWS Score More or Equal to 5 Loperamide HCl 2 mg 03/26/18 01:33 Imodium PO Q8 PRN Diarrhea Nicotine 1 patch 03/26/18 10:00 03/26/18 10:42 Nicoderm Cq TD Not Given DAILY GUILLE Ondansetron HCl 4 mg 03/26/18 01:33 Zofran Tab PO Q8 PRN Nausea/Vomiting Pseudoephedrine HCl 60 mg 03/26/18 01:33 Sudafed Tab PO QID PRN Nasal/Sinus Congestion Past Psychiatric History - Past Psychiatric History Previous Treatment History: None Pertinent Medical Hx (Current Medical&Sleep Prob, Allergies): Allergies Allergy/AdvReac Type Severity Reaction Status Date / Time FISH Allergy Verified 03/25/18 20:39 No Known Home Med 03/25/18 Review of Systems - Neurological Neurological: UNREMARKABLE - Psychiatric Psychiatric: Abnormal Sleep Pattern, Anhedonia, Anxiety, Depression, Difficulty Concentrating. absent: Hallucinations, Homicidal Ideation, Paranoia, Suicidal Ideation Mental Status Examination - Personal Presentation Personal Presentation: Looks older than stated age - Affect Affect: Constricted - Motor Activity Motor Activity: Calm - Reliability in Providing Information Reliability in Providing Information: Fair - Speech Speech: Organized - Mood Mood: Depressed, Anxious - Formal Thought Process Formal Thought Process: No Impairment - Cognitive Functions Orientation: Person, Place, Situation, Time Sensorium: Alert Attention/Concentration: Attentive Estimate of Intelligence: Average Judgement: Intact, as evidence by: Insight regarding need for hospitalization Memory: Recent intact, as evidence by: Ability to recall events of the day, Remote intact, as evidenced by: Abilit to recall sig. life events - Risk Risk: Withdrawal, Diminished functioning - Strength & Assets Inventory Strength & Assets Inventory: Cooperative - Limitations Limitations: Living alone DSM 5 DX - DSM 5 DSM 5 Diagnosis: Opioid withdrawal Opioid use disorder, severe Cocaine use d/o - severe - Recommended/Plan of Treatment Treatment Recommendations and Plan of Treatment: Taper with subutex Gabapentin for augmentation if needed As needed medications All risks, benefits and alternatives of the meds discussed, and the pt agreed and understood. Attend groups and activities Supportive therapy and psychoeducation [facility] for abstinence CBT for relapse prevention Encourage MAT Refer to rehab or IOP, and self-help groups Smoking cessation with [facility] Nicotine patch if needed 34 min Projected ELOS: 4-5 days Prognosis: good with treatment - Smoking Cessation Smoking Cessation Initiated: Yes
--- NOTE | 2018-03-26 16:15 | PCM.PYCHDC ---
Mental Status Examination - Mental Status Examination Orientation: Person Discharge Summary - Discharge Note Laboratory Data: Abnormal Lab Results 03/25/18 03/25/18 03/25/18 23:07 23:07 23:07 WBC 14.8 H D RBC 4.57 Hgb 11.7 L Hct 35.4 MCV 77.3 L D MCH 25.7 L MCHC 33.2 RDW 15.3 H Plt Count 265 MPV 8.5 Neut % (Auto) 83.0 H Lymph % (Auto) 10.0 L [place] % (Auto) 5.4 Eos % (Auto) 1.3 Baso % (Auto) 0.3 Neut # (Auto) 12.2 H Lymph # (Auto) 1.5 [place] # (Auto) 0.8 Eos # (Auto) 0.2 Baso # (Auto) 0.0 Sodium 139 Potassium 4.2 Chloride 98 Carbon Dioxide 27 Anion Gap 18 BUN 20 Creatinine 0.9 Est GFR ( Amer) > 60 Est GFR (Non-Af Amer) > 60 Random Glucose 125 H Calcium 9.4 Total Bilirubin 0.5 AST 50 ALT 60 Alkaline Phosphatase 75 Total Protein 7.7 Albumin 4.3 Globulin 3.4 Albumin/Globulin Ratio 1.3 Urine Color Yellow Urine Clarity Clear Urine pH 5.0 Ur Specific [place] 1.026 Urine Protein Negative Urine Glucose (UA) Normal Urine Ketones Negative Urine Blood Negative Urine Nitrate Negative Urine Bilirubin Negative Urine Urobilinogen Normal Ur Leukocyte Esterase 1+ H Urine WBC (Auto) 8 H Urine RBC (Auto) 1 Ur Squamous Epith Cells < 1 Urine Bacteria Occ H Urine Opiates Screen Urine Methadone Screen Ur Barbiturates Screen Ur Phencyclidine Scrn Ur Amphetamines Screen U Benzodiazepines Scrn U Oth Cocaine Metabols U Cannabinoids Screen Alcohol, Quantitative < 10 03/25/18 23:07 WBC RBC Hgb Hct MCV MCH MCHC RDW Plt Count MPV Neut % (Auto) Lymph % (Auto) [place] % (Auto) Eos % (Auto) Baso % (Auto) Neut # (Auto) Lymph # (Auto) [place] # (Auto) Eos # (Auto) Baso # (Auto) Sodium Potassium Chloride Carbon Dioxide Anion Gap BUN Creatinine Est GFR ( Amer) Est GFR (Non-Af Amer) Random Glucose Calcium Total Bilirubin AST ALT Alkaline Phosphatase Total Protein Albumin Globulin Albumin/Globulin Ratio Urine Color Urine Clarity Urine pH Ur Specific [place] Urine Protein Urine Glucose (UA) Urine Ketones Urine Blood Urine Nitrate Urine Bilirubin Urine Urobilinogen Ur Leukocyte Esterase Urine WBC (Auto) Urine RBC (Auto) Ur Squamous Epith Cells Urine Bacteria Urine Opiates Screen Positive H Urine Methadone Screen Negative Ur Barbiturates Screen Negative Ur Phencyclidine Scrn Negative Ur Amphetamines Screen Negative U Benzodiazepines Scrn Negative U Oth Cocaine Metabols Positive H U Cannabinoids Screen Negative Alcohol, Quantitative Consultations:: List each consultation separately and include: 1. Reason for request. 2. Findings. 3. Follow-up Summary of Hospital Course include:: 1. Description of specific treatment plan utilized for patients during their course of treatmen. 2. Summarize the time- course for resolution of acute symptoms and/or regressed behaviors. 3. Describe issues identified and worked on during hospitalization. 4. Describe medication utilized. 5. Describe medical problems identified and treated. 6. Reassessment of suicide risk Summary of Hospital Course: Pt is seen, chart reviewed, case discussed. 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 Pt states that he uses 2 bundles of heroin by shooting it. He started about 3 years ago and increased. Denies using benzos but admits to using cocaine by shooting it, smokes 1 pack of cigarettes/day. Pt has been on methadone before, 50mg/day. He was also in detox and rehab before. Medical hx: Hep C, uncontrolled HTN? Past psych hx: Denies, but is currently depressed Family psych hx: Denies - Diagnosis (1) Opioid use disorder, severe, dependence Current Visit: No Status: Acute - Final Diagnosis (DSM 5) Condition upon Discharge: STABLE Disposition: AGAINST MEDICAL ADVICE Follow-up Treatment Plan: Taper with subutex Gabapentin for augmentation if needed As needed medications All risks, benefits and alternatives of the meds discussed, and the pt agreed and understood. Attend groups and activities Supportive therapy and psychoeducation [facility] for abstinence CBT for relapse prevention Encourage MAT Refer to rehab or IOP, and self-help groups Smoking cessation with [facility] Nicotine patch if needed 34 min
--- NOTE | 2018-03-26 16:27 | CP.PCM.CON ---
<Cyrus Paulino L - Last Filed: 03/26/18 16:51> History of Present Illness - History of Present Illness History of Present Illness: Patient is a 58 year old male with past medical history hepatitis C and hypertension, presenting to detox on 03/26 for heroin detox. Medicine service was consulted for high blood pressure with low pulse rate. Patient was very agitated and was very concerned about methadone therapy. Denies chest pain, shortness of breath, abdominal pain, changes in bowel movements, dysuria. Patient could not be further managed due to leaving against medical advice. Past Patient History - Infectious Disease Hx of Infectious Diseases: None - Past Medical History & Family History Past Medical History?: Yes - Past Social History Smoking Status: Heavy Smoker > 10 Cigarettes Daily - CARDIAC Hx Cardiac Disorders: No Hx Hypertension: Yes - PULMONARY Hx Tuberculosis: No - NEUROLOGICAL HX Cerebrovascular Accident: No Hx Seizures: No - HEMATOLOGICAL/ONCOLOGICAL Hx Cancer: No Hx Hepatitis C: Yes Hx Human Immunodeficiency Virus (HIV): No - MUSCULOSKELETAL/RHEUMATOLOGICAL Hx Falls: No - GENITOURINARY/GYNECOLOGICAL Hx Sexually Transmitted Disorders: No - PSYCHIATRIC Hx Substance Use: No - SURGICAL HISTORY Hx Surgeries: Yes Other/Comment: inguinal hernia repair - ANESTHESIA Hx Anesthesia: Yes Hx Anesthesia Reactions: No Hx Malignant Hyperthermia: No Meds Allergies/Adverse Reactions: Allergies Allergy/AdvReac Type Severity Reaction Status Date / Time FISH Allergy Verified 03/25/18 20:39 Results - Vital Signs Recent Vital Signs: Last Vital Signs Temp 98.4 F 03/26/18 13:40 Pulse 55 L 03/26/18 13:40 Resp 18 03/26/18 13:40 BP 188/82 H 03/26/18 13:40 Pulse Ox 98 03/26/18 13:40 - Labs Result Diagrams: 03/25/18 23:07 03/25/18 23:07 Labs: Laboratory Results - last 24 hr 03/25/18 03/25/18 03/25/18 23:07 23:07 23:07 WBC 14.8 H D RBC 4.57 Hgb 11.7 L Hct 35.4 MCV 77.3 L D MCH 25.7 L MCHC 33.2 RDW 15.3 H Plt Count 265 MPV 8.5 Neut % (Auto) 83.0 H Lymph % (Auto) 10.0 L [place] % (Auto) 5.4 Eos % (Auto) 1.3 Baso % (Auto) 0.3 Neut # (Auto) 12.2 H Lymph # (Auto) 1.5 [place] # (Auto) 0.8 Eos # (Auto) 0.2 Baso # (Auto) 0.0 Sodium 139 Potassium 4.2 Chloride 98 Carbon Dioxide 27 Anion Gap 18 BUN 20 Creatinine 0.9 Est GFR ( Amer) > 60 Est GFR (Non-Af Amer) > 60 Random Glucose 125 H Calcium 9.4 Total Bilirubin 0.5 AST 50 ALT 60 Alkaline Phosphatase 75 Total Protein 7.7 Albumin 4.3 Globulin 3.4 Albumin/Globulin Ratio 1.3 Urine Color Yellow Urine Clarity Clear Urine pH 5.0 Ur Specific [place] 1.026 Urine Protein Negative Urine Glucose (UA) Normal Urine Ketones Negative Urine Blood Negative Urine Nitrate Negative Urine Bilirubin Negative Urine Urobilinogen Normal Ur Leukocyte Esterase 1+ H Urine WBC (Auto) 8 H Urine RBC (Auto) 1 Ur Squamous Epith Cells < 1 Urine Bacteria Occ H Urine Opiates Screen Urine Methadone Screen Ur Barbiturates Screen Ur Phencyclidine Scrn Ur Amphetamines Screen U Benzodiazepines Scrn U Oth Cocaine Metabols U Cannabinoids Screen Alcohol, Quantitative < 10 03/25/18 23:07 WBC RBC Hgb Hct MCV MCH MCHC RDW Plt Count MPV Neut % (Auto) Lymph % (Auto) [place] % (Auto) Eos % (Auto) Baso % (Auto) Neut # (Auto) Lymph # (Auto) [place] # (Auto) Eos # (Auto) Baso # (Auto) Sodium Potassium Chloride Carbon Dioxide Anion Gap BUN Creatinine Est GFR ( Amer) Est GFR (Non-Af Amer) Random Glucose Calcium Total Bilirubin AST ALT Alkaline Phosphatase Total Protein Albumin Globulin Albumin/Globulin Ratio Urine Color Urine Clarity Urine pH Ur Specific [place] Urine Protein Urine Glucose (UA) Urine Ketones Urine Blood Urine Nitrate Urine Bilirubin Urine Urobilinogen Ur Leukocyte Esterase Urine WBC (Auto) Urine RBC (Auto) Ur Squamous Epith Cells Urine Bacteria Urine Opiates Screen Positive H Urine Methadone Screen Negative Ur Barbiturates Screen Negative Ur Phencyclidine Scrn Negative Ur Amphetamines Screen Negative U Benzodiazepines Scrn Negative U Oth Cocaine Metabols Positive H U Cannabinoids Screen Negative Alcohol, Quantitative <Jeannie Cat - Last Filed: 03/26/18 20:08> Results - Vital Signs Recent Vital Signs: Last Vital Signs Temp 98.4 F 03/26/18 13:40 Pulse 55 L 03/26/18 13:40 Resp 18 03/26/18 13:40 BP 188/82 H 03/26/18 13:40 Pulse Ox 98 03/26/18 13:40 - Labs Result Diagrams: 03/25/18 23:07 03/25/18 23:07 Labs: Laboratory Results - last 24 hr 03/25/18 03/25/18 03/25/18 23:07 23:07 23:07 WBC 14.8 H D RBC 4.57 Hgb 11.7 L Hct 35.4 MCV 77.3 L D MCH 25.7 L MCHC 33.2 RDW 15.3 H Plt Count 265 MPV 8.5 Neut % (Auto) 83.0 H Lymph % (Auto) 10.0 L [place] % (Auto) 5.4 Eos % (Auto) 1.3 Baso % (Auto) 0.3 Neut # (Auto) 12.2 H Lymph # (Auto) 1.5 [place] # (Auto) 0.8 Eos # (Auto) 0.2 Baso # (Auto) 0.0 Sodium 139 Potassium 4.2 Chloride 98 Carbon Dioxide 27 Anion Gap 18 BUN 20 Creatinine 0.9 Est GFR ( Amer) > 60 Est GFR (Non-Af Amer) > 60 Random Glucose 125 H Calcium 9.4 Total Bilirubin 0.5 AST 50 ALT 60 Alkaline Phosphatase 75 Total Protein 7.7 Albumin 4.3 Globulin 3.4 Albumin/Globulin Ratio 1.3 Urine Color Yellow Urine Clarity Clear Urine pH 5.0 Ur Specific [place] 1.026 Urine Protein Negative Urine Glucose (UA) Normal Urine Ketones Negative Urine Blood Negative Urine Nitrate Negative Urine Bilirubin Negative Urine Urobilinogen Normal Ur Leukocyte Esterase 1+ H Urine WBC (Auto) 8 H Urine RBC (Auto) 1 Ur Squamous Epith Cells < 1 Urine Bacteria Occ H Urine Opiates Screen Urine Methadone Screen Ur Barbiturates Screen Ur Phencyclidine Scrn Ur Amphetamines Screen U Benzodiazepines Scrn U Oth Cocaine Metabols U Cannabinoids Screen Alcohol, Quantitative < 10 03/25/18 23:07 WBC RBC Hgb Hct MCV MCH MCHC RDW Plt Count MPV Neut % (Auto) Lymph % (Auto) [place] % (Auto) Eos % (Auto) Baso % (Auto) Neut # (Auto) Lymph # (Auto) [place] # (Auto) Eos # (Auto) Baso # (Auto) Sodium Potassium Chloride Carbon Dioxide Anion Gap BUN Creatinine Est GFR ( Amer) Est GFR (Non-Af Amer) Random Glucose Calcium Total Bilirubin AST ALT Alkaline Phosphatase Total Protein Albumin Globulin Albumin/Globulin Ratio Urine Color Urine Clarity Urine pH Ur Specific [place] Urine Protein Urine Glucose (UA) Urine Ketones Urine Blood Urine Nitrate Urine Bilirubin Urine Urobilinogen Ur Leukocyte Esterase Urine WBC (Auto) Urine RBC (Auto) Ur Squamous Epith Cells Urine Bacteria Urine Opiates Screen Positive H Urine Methadone Screen Negative Ur Barbiturates Screen Negative Ur Phencyclidine Scrn Negative Ur Amphetamines Screen Negative U Benzodiazepines Scrn Negative U Oth Cocaine Metabols Positive H U Cannabinoids Screen Negative Alcohol, Quantitative Attending/Attestation - Attestation I have personally seen and examined this patient.: No I have fully participated in the care of the patient.: No I have reviewed all pertinent clinical information: No Notes (Text): Patient left AMA before I see this pt 03/26/18 20:07
== END 2018-03-26 16:24 | disposition left against medical advice (07) | DRG 743 ==
LOC: C.ER 20:19 → C.7D 03-26 00:13
PROVIDERS: ADMIT Psychiatry & Neurology Psychiatry; ATTEND Psychiatry & Neurology Psychiatry
PROC: HZ2ZZZZ Detoxification Services for Substance Abuse Treatment (ICD-10-PCS; principal; 2018-03-26)
PROC: HZ59ZZZ Individual Psychotherapy for Substance Abuse Treatment, Supportive (ICD-10-PCS; 2018-03-26)
PROC: HZ46ZZZ Group Counseling for Substance Abuse Treatment, Psychoeducation (ICD-10-PCS; 2018-03-26)
PROC: HZ91ZZZ Pharmacotherapy for Substance Abuse Treatment, Methadone Maintenance (ICD-10-PCS; 2018-03-26)
PROC: HZ90ZZZ Pharmacotherapy for Substance Abuse Treatment, Nicotine Replacement (ICD-10-PCS; 2018-03-26)
DX: F11.23 Opioid dependence with withdrawal (principal); F14.10 Cocaine abuse, uncomplicated; F17.210 Nicotine dependence, cigarettes, uncomplicated; I10 Essential (primary) hypertension; B18.2 Chronic viral hepatitis C